=== PATIENT | male | born 1995 | race American Indian/Alaskan Native ===

== ENCOUNTER 2020-04-01 10:57 | Emergency (ER) | payer MEDICAID, OTHER ==
[2020-04-01 12:00] LABS: ANION GAP 15.1 mEq/L (7-13); CHLORIDE,CL 93 mmol/L (98-107); SODIUM,NA 129 mmol/L (136-145)
--- NOTE | 2020-04-01 12:16 | EDM.PDOC ---
ED HPI GENERAL MEDICAL PROBLEM - General Chief Complaint: Respiratory Problem Stated Complaint: fever cough chest pains Time Seen by Provider: 04/01/20 11:05 Source of Information: Reports: Patient, RN History Limitations: Reports: No Limitations - History of Present Illness INITIAL COMMENTS - FREE TEXT/NARRATIVE: 24-year-old male with a history of alcoholism who presents to the ER with complaints of shortness of breath, productive cough, evening fevers, loss of taste and smell 5 days. He denies a history of any medical problems and states he stopped drinking alcohol a week and half ago. Reports his grandfather has COVID-19 but denies any recent exposure. Also reports chest discomfort with coughing. States he noticed a mass on the left side of his chest this morning. H as not tried anything for his symptoms. He was placed on 2L NC as he was sating on 87% on RA. Oxygen saturation was noted to be at 91 % 2L NC. Left Chest Pain Score (Numeric/FACES): 6 - Related Data Allergies Allergy/AdvReac Type Severity Reaction Status Date / Time No Known Allergies Allergy Verified 04/01/20 11:19 Home Meds: Home Meds . [No Known Home Meds] 04/01/20 [History] Social & Family History - Tobacco Use Tobacco Use Status *Q: Never Tobacco User Second Hand Smoke Exposure: No - Caffeine Use Caffeine Use: Reports: Soda - Recreational Drug Use Recreational Drug Type: Reports: Marijuana/Hashish ED ROS GENERAL - Review of Systems Review Of Systems: Comprehensive ROS is negative, except as noted in HPI. ED EXAM, GENERAL - Physical Exam Exam: See Below Exam Limited By: No Limitations General Appearance: Alert, No Apparent Distress Eye Exam: Bilateral Eye: Other (sclera yellow) Ears: Normal External Exam, Normal Canal, Hearing Grossly Normal, Normal TMs Nose: Normal Inspection, Normal Mucosa, No Blood Throat/Mouth: Normal Inspection, Normal Lips, Normal Teeth, Normal Gums, Normal Oropharynx, Normal Voice, No Airway Compromise Neck: Normal Inspection, Supple, Non-Tender, Full Range of Motion Respiratory/Chest: Crackles (Noted on Bilater middle and lower lobes.), Other (Large mass noted on the left side of the anterior chest, not painful to palpation) Cardiovascular: No Edema, No Murmur, Tachycardia GI/Abdominal: Normal Bowel Sounds, Soft Extremities: Normal Range of Motion, Non-Tender, No Pedal Edema Neurological: Alert, Oriented Psychiatric: Normal Affect, Normal Mood Skin Exam: Warm, Jaundice Course - Vital Signs Last Recorded V/S: Last Vital Signs Temp 98.2 F 04/01/20 11:09 Pulse 132 H 04/01/20 11:09 Resp 40 H 04/01/20 11:09 BP 128/68 04/01/20 11:09 Pulse Ox 88 L 04/01/20 11:09 - Orders/Labs/Meds Orders: Active Orders 24 hr Category Date Time Status Azithromycin [Zithromax] 500 mg Med 04/01/20 14:45 Active Sodium Chloride 0.9% [Normal Saline (AdvBag)] 250 ml IV ONETIME Medication Orders Azithromycin 500 mg/ Sodium (Chloride) 250 mls @ 250 mls/hr IV ONETIME ONE Stop: 04/01/20 15:44 Labs: Laboratory Tests 04/01/20 04/01/20 04/01/20 Range/Units 11:21 11:33 11:33 WBC 11.3 H (5.0-10.0) 10^3/uL RBC 4.43 L (4.6-6.2) 10^6/uL Hgb 12.8 L (14.0-18.0) g/dL Hct 37.1 L (40.0-54.0) % MCV 83.7 (80-100) fL MCH 28.9 (27.0-34.0) pg MCHC 34.5 (33.0-35.0) g/dL Plt Count 202 (150-450) 10^3/uL Sodium 129 L (136-145) mmol/L Potassium 3.1 L (3.5-5.1) mmol/L Chloride 93 L (98-107) mmol/L Carbon Dioxide 24 (21-32) mmol/L Anion Gap 15.1 H (7-13) mEq/L BUN 6 L (7-18) mg/dL Creatinine 1.01 (0.70-1.30) mg/dL Est Cr Clr Drug Dosing 133.38 mL/min Estimated GFR (MDRD) > 60 BUN/Creatinine Ratio 5.9 (No establ ref range) Glucose 112 H (74-99) mg/dL Calcium 7.5 L (8.5-10.1) mg/dL Total Bilirubin 13.6 H (0.2-1.0) mg/dL AST 454 H (15-37) U/L ALT 69 H (16-63) U/L Alkaline Phosphatase 173 H (46-116) U/L Total Protein 8.6 H (6.4-8.2) g/dL Albumin 2.2 L (3.4-5.0) g/dL Globulin 6.4 Albumin/Globulin Ratio 0.34 SARS CoV-2 RNA Rapid DELTA Negative (NEGATIVE) 04/01/20 Range/Units 13:38 WBC (5.0-10.0) 10^3/uL RBC (4.6-6.2) 10^6/uL Hgb (14.0-18.0) g/dL Hct (40.0-54.0) % MCV (80-100) fL MCH (27.0-34.0) pg MCHC (33.0-35.0) g/dL Plt Count (150-450) 10^3/uL Sodium (136-145) mmol/L Potassium (3.5-5.1) mmol/L Chloride (98-107) mmol/L Carbon Dioxide (21-32) mmol/L Anion Gap (7-13) mEq/L BUN (7-18) mg/dL Creatinine (0.70-1.30) mg/dL Est Cr Clr Drug Dosing mL/min Estimated GFR (MDRD) BUN/Creatinine Ratio (No establ ref range) Glucose (74-99) mg/dL Calcium (8.5-10.1) mg/dL Total Bilirubin (0.2-1.0) mg/dL AST (15-37) U/L ALT (16-63) U/L Alkaline Phosphatase (46-116) U/L Total Protein (6.4-8.2) g/dL Albumin (3.4-5.0) g/dL Globulin Albumin/Globulin Ratio SARS CoV-2 RNA Rapid DELTA Negative (NEGATIVE) Meds: Medications Generic Name Dose Route Start Last Admin Trade Name Freq PRN Reason Stop Dose Admin Azithromycin 500 mg/ Sodium 250 mls @ 250 mls/hr 04/01/20 14:45 Chloride IV 04/01/20 15:44 ONETIME ONE Discontinued Medications Generic Name Dose Route Start Last Admin Trade Name Freq PRN Reason Stop Dose Admin Dexamethasone 6 mg 04/01/20 14:44 04/01/20 14:59 Dexamethasone IVPUSH 04/01/20 14:45 6 mg ONETIME ONE Administration Ceftriaxone Sodium 1 gm/ 50 mls @ 100 mls/hr 04/01/20 14:44 04/01/20 15:05 Sodium Chloride IV 04/01/20 15:13 100 mls/hr ONETIME ONE Administration - Re-Assessments/Exams Free Text/Narrative Re-Assessment/Exam: Reviewed exam findings with patient. Also reviewed Lab result and CT robert with patient. COVID- results was negative even though patient has symptoms of COVID and ground glass infiltrates and hypoxic. Second COVID-19 test negative. Reviewed case with at [facility] who accepted patient for transfer. Decadron 6 mg, Rocephin 1g and Azithromycin 500 mg administered IV. Patient in agreement to plan. Departure - Departure Time of Disposition: 14:43 Disposition: DC/Tfer to [facility] 02 Condition: Fair Clinical Impression: Ground glass opacity present on imaging of lung, COVID-19, Elevated liver function tests, Jaundice of recent onset - Discharge Information Forms: ED Department Discharge, Interfacility Transfer [facility] Sepsis Event Note (ED) - Evaluation Sepsis Screening Result: Possible Sepsis Risk - Focused Exam Vital Signs: Vital Signs Temp Pulse Resp BP Pulse Ox 04/01/20 11:09 98.2 F 132 H 40 H 128/68 88 L - My Orders Last 24 Hours: My Active Orders 04/01/20 14:45 Azithromycin [Zithromax] 500 mg Sodium Chloride 0.9% [Normal Saline (AdvBag)] 250 ml IV ONETIME - Assessment/Plan Last 24 Hours: My Active Orders 04/01/20 14:45 Azithromycin [Zithromax] 500 mg Sodium Chloride 0.9% [Normal Saline (AdvBag)] 250 ml IV ONETIME
--- NOTE | 2020-04-01 13:08 | CT ---
EXAMINATION: Chest wo Cont SEX: Male AGE: 24 years CLINICAL HISTORY: 24-year-old high risk (father COVID-19 positive with pneumonia) male complaining of shortness of breath and although " COVID negative" (rapid test) he has a potential covid mass on left chest. Scan technique: Volume acquisition of data emergency unenhanced CT scan of the chest (bony thorax, lungs and mediastinum) obtained with the patient lying supine on the Siemens multislice scanner [place], [place]. All data archived in the PACS system for storage, reformatting axial/sagittal/coronal veins and study. Interpretation: Abnormal. 1. Multilobar peripheral subpleural "groundglass" infiltrates both lung macias characteristic appearance of COVID 19 viral infection (pneumonia). 2. Asymmetric large oval 9.0 cm W x 12.1 cm L x 4.0 cm AP soft tissue mass located beneath the pectus musculature above the nipple anterior left chest wall. No obvious involvement of the underlying ribs, ipsilateral pleural surface or left lung. Differential consideration should include actinomycosis. 3. Normal cardiac silhouette. No pericardial effusion, pulmonary vascular congestion, alveolar edema or dependent pleural fluid accumulation. 4. No lung mass or significant hilar/mediastinal lymphadenopathy. 5. No focal lobar consolidation (infiltrate/atelectasis) centrally or air bronchograms. 6. Fatty liver. Splenomegaly. Gallbladder, stomach, unenhanced spleen, pancreas unremarkable. No ascites. CONCLUSION: COVID pneumonia. Large extrathoracic anterior left chest wall mass.
[2020-04-01] MEDS ORDERED: cefTRIAXone 1 GM in Sodium Chloride 0.9% 50 ML IV ONE (14:44)
[2020-04-01] MEDS ORDERED: Dexamethasone 4 MG/ML SDV IVPUSH ONE (14:44)
[2020-04-01] MEDS ORDERED: Azithromycin 500 MG in Sodium Chloride 0.9% 250 ML IV ONE (14:45)
== END 2020-04-01 17:11 ==
LOC: DL.ED 10:57
DX: U07.1 COVID-19 (principal); R79.89 Other specified abnormal findings of blood chemistry; R17 Unspecified jaundice; R91.8 Other nonspecific abnormal finding of lung field
CPT/HCPCS: 36415; 71250; 80053; 85027; 87635; 96365; 96367; 96375; 99285; J0456; J0696; J1100; J7050; U0002

== ENCOUNTER 2020-08-28 12:41 | Emergency (ER) | payer OTHER ==
[2020-08-28] MEDS ORDERED: Sodium Chloride 0.9% 1,000 ML IV ONE (12:42)
[2020-08-28] MEDS ORDERED: Rocuronium 100 MG/10 ML MDV IV ONE (12:42)
[2020-08-28] MEDS ORDERED: ceFAZolin 1 GM in Premix Bag 1 BAG IV ONE ×3 (12:42→12:55)
[2020-08-28] MEDS ORDERED: Iopamidol 612 MG/ML 100 ML Bottle IVPUSH ONE (12:52)
[2020-08-28] MEDS ORDERED: Iopamidol 612 MG/ML 50 ML SDV IVPUSH ONE (12:52)
[2020-08-28] MEDS ORDERED: Lactated Ringers 1,000 ML IV ONE (13:10)
--- NOTE | 2020-08-28 13:10 | EDM.PDOC ---
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 Urgent - Assessment/Plan Last 24 Hours: My Active Orders 08/28/20 12:49 Cervical Spine wo Cont [CT] Urgent 08/28/20 12:56 Blood Transfusion Reflex Orders [OM.PC] ONETIME 08/28/20 13:11 Chest 1V Frontal [CR] Urgent
[2020-08-28 13:16] LABS: ANION GAP 22.2 mEq/L (7-13); CHLORIDE,CL 99 mmol/L (98-107); SODIUM,NA 137 mmol/L (136-145)
[2020-08-28] MEDS ORDERED: Heparin Sodium 5,000 Units/ML Vial IVPUSH ONE (13:18)
[2020-08-28] MEDS ORDERED: Lactated Ringers 500 ML IV ONE (13:30)
[2020-08-28] MEDS ORDERED: Heparin Sodium/0.45% NaCl 25,000 UNITS/500 ML BAG IV SCH (13:30)
[2020-08-28] MEDS ORDERED: MANNITOL ONE (13:38)
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
--- NOTE | 2020-08-28 14:52 | CR ---
PROCEDURE INFORMATION: Exam: XR Chest Exam date and time: 08/28/2020 2:29 PM Age: 25 years old Clinical indication: Device placement; Ett placement (vent status); Additional info: Verify tube placement TECHNIQUE: Imaging protocol: XR of the chest Views: 1 view. COMPARISON: CT Chest Abdomen Pelvis w Cont 08/28/2020 1:04 PM FINDINGS: Tubes, catheters and devices: Endotracheal tube is present with the tip above the level of the heena. Nasogastric tube is present. Lungs: There is opacity of the right lung apex. Atelectatic changes noted within the lung bases. Heart/Mediastinum: The heart demonstrates mild diffuse enlargement. Bones/joints: Unremarkable. Other findings: Low depth of inspiration imaged. IMPRESSION: 1. Endotracheal tube is present with the tip above the level of the heena. 2. Atelectatic changes noted within the lung bases.
[2020-08-28 16:24] LABS: ALLEN TEST PERFORMED; BASE EXCESS ARTERIAL -3 mmol/L ((-2)-(+3)); BICARBONATE,ARTERIAL 19.3 mmol/L (22-26); O2 DELIVERY DEVICE NASAL CANNULA; O2 SATURATION ARTERIAL 98 % (95-100); PCO2 ARTERIAL 26 mmHg (35-45); PO2 ARTERIAL 94 mmHg (70-100)
== END 2020-08-28 14:15 ==
LOC: DL.ED 12:41
DX: S30.1XXA Contusion of abdominal wall, initial encounter (principal); S80.11XA Contusion of right lower leg, initial encounter; S80.12XA Contusion of left lower leg, initial encounter; S00.83XA Contusion of other part of head, initial encounter; S20.212A Contusion of left front wall of thorax, initial encounter; S36.209A Unspecified injury of unspecified part of pancreas, initial encounter; J98.11 Atelectasis; R00.0 Tachycardia, unspecified; R41.82 Altered mental status, unspecified; Z20.822 Contact with and (suspected) exposure to COVID-19; Y04.0XXA Assault by unarmed brawl or fight, initial encounter
CPT/HCPCS: 31500; 36415; 36600; 70450; 71045; 71260; 74177; 80053; 80305; 80307; 81001; 82553; 82803; 82962; 84484; 85025; 86140; 86850; 86900; 86901; 87635; 93005; 93010; 99285; J0690; J7030; J7120; Q9967; U0002

== ENCOUNTER 2022-07-16 17:23 | Emergency (ER) | payer MEDICAID, OTHER ==
[2022-07-16] MEDS ORDERED: Sodium Chloride 0.9% 10 ML Syringe FLUSH PRN (17:41)
[2022-07-16 18:18] LABS: AMPHETAMINES,URINE NEGATIVE (NEGATIVE); BARBITURATES,URINE NEGATIVE (NEGATIVE); BENZODIAZEPINE,URINE NEGATIVE (NEGATIVE); MDMA (ECSTASY), URINE NEGATIVE (NEGATIVE); METHADONE,URINE NEGATIVE (NEGATIVE); METHAMPHETAMINES,URINE NEGATIVE (NEGATIVE); OPIATES,URINE NEGATIVE (NEGATIVE); OXYCODONE,URINE NEGATIVE (NEGATIVE); PHENCYCLIDINE,URINE NEGATIVE (NEGATIVE); TCA,URINE NEGATIVE (NEGATIVE)
[2022-07-16 18:32] LABS: CORONAVIRUS COVID-19 NAA NEGATIVE (NEGATIVE); RESPIRATORY SYNCYTIAL VIR NAA NEGATIVE (NEGATIVE)
[2022-07-16 18:38] LABS: ANION GAP 19.9 mEq/L (7-13); CHLORIDE,CL 106 mmol/L (98-107); SODIUM,NA 142 mmol/L (136-145)
[2022-07-16 18:43] LABS: ESTIMATED GFR 120 mL/min (>=60)
[2022-07-16] MEDS ORDERED: Ketorolac 30 MG/ML SDV IM ONE (21:10)
[2022-07-16] MEDS ORDERED: Orphenadrine 60 MG/2 ML Inj IM ONE (21:11)
[2022-07-16] MEDS ORDERED: hydrOXYzine HCl 25 MG Tab PO ONE (21:21)
== END 2022-07-16 21:41 | disposition home or self-care (01) ==
LOC: DL.ED 17:23
DX: R07.89 Other chest pain (principal); F41.9 Anxiety disorder, unspecified; Z20.822 Contact with and (suspected) exposure to COVID-19
CPT/HCPCS: 0241U; 36415; 71045; 80053; 80305-QW; 80307; 81001; 82150; 83605; 83690; 83735; 84145; 84484; 85025; 85610; 93005; 93010; 96372; 99284; 99285; A9270-GY; J1885; J2360